=== PATIENT | male | born 1940 | race Two or more races ===

== ENCOUNTER 2018-12-10 12:59 | Emergency (ER) | payer OTHER ==
[2018-12-10 13:07] VITALS: BP 119/89; PULSE 74; RESP 17; TEMP 98.2; O2SAT 98
--- NOTE | 2018-12-10 14:49 | ED PDOC ---
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 Discussed at length the process regarding hospital protocol for a needlestick injury and prophylactic HIV medication (PREP), patient prefers to wait until his patient's blood work is complete. He also stats he has additional cases scheduled at the moment in the OR. Patient states he prefers to follow up, and will return to the ER after his procedures are complete. Discussed with employee health as well as the gas charger in the OR. Past Medical History Reviewed: Historical Data, Nursing Documentation, Vital Signs Vital Signs: Last Vital Signs Temp 98.2 F 12/10/18 13:07 Pulse 74 12/10/18 13:07 Resp 17 12/10/18 13:07 BP 119/89 12/10/18 13:07 Pulse Ox 98 12/10/18 13:07 - Medical History PMH: No Chronic Diseases - Surgical History Surgical History: No Surg Hx - Family History Family History: States: No Known Family Hx - Allergies Allergies/Adverse Reactions: Allergies Allergy/AdvReac Type Severity Reaction Status Date / Time apple Allergy ANGIOEDEMA Verified 12/10/18 13:27 larry Allergy ANGIOEDEMA Verified 12/10/18 13:28 Review of Systems ROS Statement: Except As Marked, All Systems Reviewed And Found Negative Musculoskeletal: Positive for: Other (needle stick injury) Physical Exam - Physical Exam Comments: Deferred - ECG O2 Sat by Pulse Oximetry: 98 (RA) Pulse Ox Interpretation: Normal Medical Decision Making Medical Decision Making: Needlestick injury; currently pending further labs and workup, including PREP due to patient preference. [address] Rowland and was able to confirm the patient he had was tested negative for HIV. Dr. Joiner states he will not come to the ER for labwork. Scribe Attestation: Documented by Savita Maradiaga acting as a scribe for Gloria Mckay MD. Provider Attestation: All medical record entries made by the Scribe were at my direction and personally dictated by me. I have reviewed the chart and agree that the record accurately reflects my personal performance of the history, physical exam, medical decision making, and the department course for this patient. I have also personally directed, reviewed, and agree with the discharge instructions and disposition. Disposition - Clinical Impression Clinical Impression: Needle stick injury - Disposition Disposition: Routine/Home Disposition Time: 16:18 Condition: STABLE Forms: [employer] [place] (Indonesian)
== END 2018-12-10 16:18 | disposition home or self-care (01) ==
LOC: H.ER 12:59
DX: S61.439A Puncture wound without foreign body of unspecified hand, initial encounter (principal); W46.0XXA Contact with hypodermic needle, initial encounter; Y99.0 Civilian activity done for income or pay; Z77.21 Contact with and (suspected) exposure to potentially hazardous body fluids